=== PATIENT | female | born 1955 ===

== ENCOUNTER 2018-10-30 21:03 | Outpatient (CLI) | payer MEDICARE | END 2018-10-30 21:04 | disposition short-term general hospital (02) | LOC: EMS 21:03 | PROVIDERS: ATTEND Surgery | DX: R11.2 Nausea with vomiting, unspecified (principal); R53.1 Weakness; R32 Unspecified urinary incontinence; R31.9 Hematuria, unspecified | CPT/HCPCS: A0425; A0427 ==

== ENCOUNTER 2023-05-06 18:40 | Outpatient (CLI) | payer MEDICARE | END 2023-05-06 18:41 | disposition E | LOC: EMS 18:40 ==